=== PATIENT | female | born 1955 | race Caucasian/White ===

== ENCOUNTER 2019-03-30 09:33 | Inpatient (IN) | payer MEDICAID ==
[2019-03-30] MEDS ORDERED: NS 0.9% 1000 ML** 1,000 ML IV ONE (13:10)
[2019-03-30 13:20] LABS: ABS Eosinophils 0.2 10^3/ul (0-0.6); ABS Lymphocytes 2.2 10^3/ul (1.0-4.8); ABS Monocytes 0.7 10^3/ul (0-0.8); ABS Neutrophils 4.2 10^3/ul (1.5-7.7); Eosinophil % 2.8 %; Hematocrit 41 % (35-47); Hemoglobin 13.9 g/dL (12.0-16.0); Lymphocyte % 29.4 %; Mean Corpuscular HGB Conc 34 g/dL (31-36); Mean Corpuscular Hemoglobin 29 pg (27-31); Mean Corpuscular Volume 86 fL (80-97); Mean Platelet Volume 7.2 fL (7.4-10.4); Nucleated Red Blood Cells % 0.1; Platelet Count 363 10^3/uL (150-450); Red Blood Count 4.78 10^6 /uL (3.70-4.87); Red Cell Distribution Width 14 % (10-15); White Blood Count 7.4 10^3/uL (3.5-10.8)
[2019-03-30 13:37] LABS: Albumin 3.7 g/dL (3.2-5.2); Albumin/Globulin Ratio 1.2 (1-3); BUN/Creatinine Ratio 28.7 (8-20); C Reactive Protein 66.69 mg/L (<8.01); Calcium 8.4 mg/dL (8.6-10.3); EGFR African American 79.6 (>60); EGFR Non-African American 65.8 (>60); Potassium 3.7 mmol/L (3.5-5.0); Total Bilirubin 0.8 mg/dL (0.2-1.0); Total Protein 6.7 g/dL (6.4-8.9)
[2019-03-30] MEDS ORDERED: Iohexol 300* (CONTRAST) 10 ML SDV IV ONE (15:19)
--- NOTE | 2019-03-30 15:27 | ED ---
Abdominal Pain/Female - HPI Summary HPI Summary: Pt is a 63 y/o F presenting to the ED for a chief complaint of abdominal pain. Pt is arriving from [facility]. Pt lives in [place]. Pt was traveling to visit her daughter who lives in [place], [place] before this episode. The pain began with a burning sensation on 03/29/19 and started in the lower abdomen and moved to upper abdomen. Pt reported abdominal pain while driving to [place], [place]. Pt called 911 in [place], [place]. Pt was given antiemetics IV, antibiotics and fluids at that time at [facility]. Pt has improved since then. Pt had CT and bloodwork completed at that time. Pt describes the pain initially as comes and goes, and was later a constant pain. The pain was relieved with medicine given to her at her previous ED visit. Pt had nausea and vomiting on arrival to [facility]. Pt has only had water since previously being seen. Pt reports fatigue, lower back pain , and occasional diarrhea. Pt denies any fever, chills, erythema of eyes, sore throat, CP, SOB, cough, blood in stool, dysuria, hematuria, urinary frequency, edema, rash, or dizziness. Pt has a PSHx of a fistula repair and bowel resection. 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 Pt denies a PMHx of HTN, DM, or hypercholesterolemia, but admits a PMHx of Crohns disease for which she does not take medication. Pt does not have a PCP or GI physician in [place]. Pt takes aspirin. Pt denies alcohol use but admits tobacco use. - History of Current Complaint Chief Complaint: EDAbdPain Stated Complaint: ABD PAIN PER PT Time Seen by Provider: 03/30/19 12:51 Hx Obtained From: Patient Onset/Duration: Sudden Onset, Lasting Hours, Still Present Severity Initially: Mild Severity Currently: Mild Pain Intensity: 2 Pain Scale Used: 0-10 Numeric Location: Diffuse - Lower migrated to upper Radiates: Yes Radiates to: Back Character: Burning Aggravating Factor(s): Nothing Alleviating Factor(s): Nothing Associated Signs and Symptoms: Positive: Back Pain, Nausea, Vomiting, Diarrhea. Negative: Fever, Cough, Chest Pain, Dizzy, Constipation, Blood in Stool, Urinary Symptoms Allergies/Adverse Reactions: Allergies Allergy/AdvReac Type Severity Reaction Status Date / Time codeine Allergy See Comment Verified 03/30/19 09:47 promethazine [From Phenergan] Allergy See Comment Verified 03/30/19 18:29 PMH/Surg Hx/FS Hx/Imm Hx Previously Healthy: Yes Endocrine/Hematology History: Denies: Hx Diabetes Cardiovascular History: Denies: Hx Hypercholesterolemia, Hx Hypertension GI History: Reports: Hx Crohn's Disease Sensory History: Denies: Hx Legally Blind Opthamlomology History: Denies: Hx Legally Blind EENT History: Denies: Hx Deafness - Surgical History Surgical History: Yes Surgery Procedure, Year, and Place: Fistula repair; bowel resection. - Immunization History Immunizations Up to Date: Yes Infectious Disease History: No Infectious Disease History: Denies: Traveled Outside the [place] in Last 30 Days - Family History Known Family History: Negative: Diabetes - Social History Alcohol Use: None Substance Use Type: Reports: None Smoking Status (MU): Current Every Day Smoker Review of Systems Positive: Fatigue. Negative: Fever, Chills Negative: Erythema Negative: Sore Throat Negative: Chest Pain Negative: Shortness Of Breath, Cough Positive: Abdominal Pain, Vomiting, Diarrhea - Occasional, Nausea, Other - Negative blood in stool Negative: dysuria, frequency - Urinary, hematuria Positive: Myalgia - Lower back. Negative: Edema Negative: Rash Neurological: Other - Negative dizziness All Other Systems Reviewed And Are Negative: Yes Physical Exam - Summary Physical Exam Summary: Constitutional: Well-developed, Well-nourished, Alert. (-) Distressed Skin: Warm, Dry HENT: Normocephalic; Atraumatic Eyes: Conjunctiva normal Neck: Musculoskeletal ROM normal neck. (-) JVD, (-) Stridor, (-) Tracheal deviation Cardio: Rhythm regular, rate normal, Heart sounds normal; Intact distal pulses; The pedal pulses are 2+ and symmetric. Radial pulses are 2+ and symmetric. (-) Murmur Pulmonary/Chest wall: Effort normal. (-) Respiratory distress, (-) Wheezes, (-) Rales Abd: Soft, (-) Distension, (-) Guarding, (-) Rebound, RLQ tenderness. Musculoskeletal: (-) Edema Lymph: (-) Cervical adenopathy Neuro: Alert, Oriented x3 Psych: Mood and affect Normal Triage Information Reviewed: Yes Vital Signs On Initial Exam: Initial Vitals Temp Pulse Resp BP Pulse Ox 97.9 F 101 16 112/68 97 03/30/19 09:42 03/30/19 09:42 03/30/19 09:42 03/30/19 09:42 03/30/19 09:42 Vital Signs Reviewed: Yes Procedures - Sedation Patient Received Moderate/Deep Sedation with Procedure: No Diagnostics - Vital Signs Vital Signs Temp Pulse Resp BP Pulse Ox 03/30/19 14:28 95 114/62 95 03/30/19 14:00 99 93 03/30/19 13:58 99 115/57 93 03/30/19 13:28 95 111/59 92 03/30/19 13:23 100 92 03/30/19 11:23 99.2 F 100 20 160/90 95 03/30/19 09:42 97.9 F 101 16 112/68 97 - Laboratory Lab Results: Lab Results 03/30/19 03/30/19 03/30/19 Range/Units 13:14 13:14 13:14 WBC 7.4 (3.5-10.8) 10^3/uL RBC 4.78 (3.70-4.87) 10^6 /uL Hgb 13.9 (12.0-16.0) g/dL Hct 41 (35-47) % MCV 86 (80-97) fL MCH 29 (27-31) pg MCHC 34 (31-36) g/dL RDW 14 (10-15) % Plt Count 363 (150-450) 10^3/uL MPV 7.2 L (7.4-10.4) fL Neut % (Auto) 57.5 % Lymph % (Auto) 29.4 % [place] % (Auto) 9.7 % Eos % (Auto) 2.8 % Baso % (Auto) 0.6 % Absolute Neuts (auto) 4.2 (1.5-7.7) 10^3/ul Absolute Lymphs (auto) 2.2 (1.0-4.8) 10^3/ul Absolute Monos (auto) 0.7 (0-0.8) 10^3/ul Absolute Eos (auto) 0.2 (0-0.6) 10^3/ul Absolute Basos (auto) 0.0 (0-0.2) 10^3/ul Absolute Nucleated RBC 0.0 10^3/ul Nucleated RBC % 0.1 Sodium 135 (135-145) mmol/L Potassium 3.7 (3.5-5.0) mmol/L Chloride 103 (101-111) mmol/L Carbon Dioxide 25 (22-32) mmol/L Anion Gap 7 (2-11) mmol/L BUN 25 H (6-24) mg/dL Creatinine 0.87 (0.51-0.95) mg/dL Est GFR ( Amer) 79.6 (>60) Est GFR (Non-Af Amer) 65.8 (>60) BUN/Creatinine Ratio 28.7 H (8-20) Glucose 102 H (70-100) mg/dL Lactic Acid 1.0 (0.5-2.0) mmol/L Calcium 8.4 L (8.6-10.3) mg/dL Total Bilirubin 0.80 (0.2-1.0) mg/dL AST 18 (13-39) U/L ALT 15 (7-52) U/L Alkaline Phosphatase 95 (34-104) U/L C-Reactive Protein 66.69 H (<8.01) mg/L Total Protein 6.7 (6.4-8.9) g/dL Albumin 3.7 (3.2-5.2) g/dL Globulin 3.0 (2-4) g/dL Albumin/Globulin Ratio 1.2 (1-3) Lipase 45 (11.0-82.0) U/L Result Diagrams: 04/02/19 07:00 04/02/19 07:00 Lab Statement: Any lab studies that have been ordered have been reviewed, and results considered in the medical decision making process. - CT Abdomen/Pelvis CT CT Interpretation Completed By: Radiologist Summary of CT Findings: Abdomen/Pelvis CT IMPRESSION: 1. DILATED LOOPS OF SMALL BOWEL CONSISTENT WITH SMALL BOWEL OBSTRUCTION. THERE IS NO. FOCAL TRANSITION POINT, THOUGH THERE IS DECREASED LUMEN OF THE SMALL BOWEL MUCOSAL. THICKENING AT THE LEVEL OF THE TERMINAL ILEUM EXTENDING TO THE CECUM CONSISTENT WITH A. HISTORY OF INFLAMMATORY BOWEL DISEASE. THERE IS POSTSURGICAL CHANGE TO THE SMALL BOWEL AND. COLON. 2. ATHEROSCLEROSIS. Reviewed by ED physician. Abdominal Pain Fem Course/Dx - Course Course Of Treatment: Pt is a 63 y/o F presenting to the ED for a chief complaint of abdominal pain. Pt is arriving from [facility]. Pt lives in [place]. Pt was traveling to visit her daughter who lives in [place], [place] before this episode. The pain began with a burning sensation on 03/29/19 and started in the lower abdomen and moved to upper abdomen. Pt reported abdominal pain while driving to [place], [place]. Pt called 911 in [place], [place]. Pt was given antiemetics IV, antibiotics and fluids at that time at [facility]. Pt has improved since then. Pt had CT and bloodwork completed at that time. Pt describes the pain initially as comes and goes, and was later a constant pain. The pain was relieved with medicine given to her at her previous ED visit. Pt had nausea and vomiting on arrival to [facility]. Pt has only had water since previously being seen. Pt reports fatigue, lower back pain, and occasional diarrhea. Pt denies any fever, chills, erythema of eyes, sore throat, CP, SOB, cough, blood in stool, dysuria, hematuria, urinary frequency, edema, rash, or dizziness. Pt has a PSHx of a fistula repair and bowel resection. 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 Pt denies a PMHx of HTN, DM, or hypercholesterolemia, but admits a PMHx of Crohns disease for which she does not take medication. Pt does not have a PCP or GI physician in [place]. Pt takes aspirin. Pt denies alcohol use but admits tobacco use. On exam, pt has RLQ tenderness. Laboratory abnormal findings: MPV 7.2, BUN 25, BUN/creatinine ratio 28.7, glucose 102, calcium 102, c-reactive protein 66.69, urine specific gravity 1.035 , urine ketones trace, urine leukocyte esterase 2+, urine WBC 2+, urine RBC 3+, urine squamous epith cells present, hyaline casts present. Abdomen/Pelvis CT IMPRESSION: 1. DILATED LOOPS OF SMALL BOWEL CONSISTENT WITH SMALL BOWEL OBSTRUCTION. THERE IS NO. FOCAL TRANSITION POINT, THOUGH THERE IS DECREASED LUMEN OF THE SMALL BOWEL MUCOSAL. THICKENING AT THE LEVEL OF THE TERMINAL ILEUM EXTENDING TO THE CECUM CONSISTENT WITH A. HISTORY OF INFLAMMATORY BOWEL DISEASE. THERE IS POSTSURGICAL CHANGE TO THE SMALL BOWEL AND. COLON. 2. ATHEROSCLEROSIS. In the ED course, pt was given Iohexol 93 ml IV, morphine 2 mg IV, and fluids. Pt will be admitted to [facility]. - Diagnoses Provider Diagnoses: SBO (small bowel obstruction) Discharge ED - Sign-Out/Discharge Documenting (check all that apply): Patient Departure - Admit - Discharge Plan Condition: Good Disposition: ADMITTED TO [facility] - Billing Disposition and Condition Condition: GOOD Disposition: Admitted to [facility] - Attestation Statements Document Initiated by Scribe: Yes Documenting Scribe: Isaura Lindsay Provider For Whom Scribe is Documenting (Include Credential): Ilan Puga MD. Scribe Attestation: Isaura Montague, scribed for Ilan Puga MD. on 04/17/19 at 1046. Scribe Documentation Reviewed: Yes Provider Attestation: The documentation as recorded by the scribeIsaura accurately reflects the service I personally performed and the decisions made by , Ilan Puga MD. Status of Scribe Document: Viewed
[2019-03-30 16:22] LABS: Urine Appearance Clear; Urine Bacteria Absent (Absent); Urine Bilirubin Negative (Negative); Urine Blood Negative (Negative); Urine Color Amber; Urine Glucose Negative (Negative); Urine Ketones Trace (Negative); Urine Nitrite Negative (Negative); Urine Protein Negative (Negative); Urine Red Blood Cell 3+(>10/hpf) (Absent); Urine Specific Gravity 1.035 (1.010-1.030); Urine Squamous Epithelial Cell Present (Absent); Urine Urobilinogen Negative (Negative); Urine White Blood Cell 2+(11-20/hpf) (Absent)
[2019-03-30] MEDS ORDERED: Ondansetron INJ* 2 MG/ML VIAL IV PRN (18:13)
[2019-03-30] MEDS ORDERED: Morphine 4 MG/ML VIAL (1 ml) 4 MG/ML VIAL IV PRN (18:27)
[2019-03-30] MEDS: Enoxaparin(*) 40 MG/0.4 ML SYR SUBCUT SCH (20:55)
[2019-03-30] MEDS: NS 0.9% 1000 ML** 1,000 ML IV SCH (21:00)
--- NOTE | 2019-03-30 21:19 | HP ---
CC: Bea Villatoro MD * ADMISSION HISTORY AND PHYSICAL: DATE OF ADMISSION: 03/30/19 PRIMARY CARE PROVIDER: None. ATTENDING FOR THIS ADMISSION: Dr. Ruth Sanchez.* (DICTATED BY DAISY POST NP) CHIEF COMPLAINT: Abdominal pain and nausea. HISTORY OF PRESENT ILLNESS: Ms. Smith is a 63-year-old female patient with a history of Crohn's disease and bowel resection in 1999 and 2005. Ms. Smith states that she has not sought any medical attention since having her last resection in 2005. She does usually reside in [place], [place]; however, she has a daughter here in [place] that she frequently comes to visit. In last 24 hours, she reports that she started having abdominal pain and a burning sensation which progressed since yesterday and then she started having increasing nausea. She does liken her symptoms to her issue with a small bowel obstruction secondary to Crohn's disease in 2005, and at that time her family brought her to the emergency department for evaluation. In the ED, she was given IV fluids and had some imaging done. CT of her abdomen and pelvis did show some acute changes. Impression of the CT showed dilated loops of small bowel consistent with a small bowel obstruction. There was no focal transition point, although there is a decreased movement of the small bowel. Mucosal thickening at the level of the terminal ileum extending into the cecum consistent with a history of inflammatory bowel disease. There was a postsurgical change to the small bowel and the colon and there was also some noted atherosclerosis. At this time, we were consulted to evaluate the patient for admission for small bowel obstruction and untreated Crohn's disease. PAST MEDICAL HISTORY: Per the patient's report is Crohn's disease, although she has not seen the doctor since 2005 and does not have a primary care. HOME MEDICATIONS: None. ALLERGIES: PHENERGAN and CODEINE. FAMILY HISTORY: Noncontributory. SOCIAL HISTORY: The patient is an active everyday smoker, half pack per day for many years. Denies any alcohol. Denies any illicit drug use. Again, is from the out of town and is visiting the daughter. In case of emergency, she requests us to call her daughter, Mona Nye. She does not have Mona 's phone number with her. CODE STATUS: She is a full code. REVIEW OF SYSTEMS: The patient denies any fever, fatigue, or chills. No dizziness. No chest pain. No shortness of breath. She does have abdominal pain described as diffuse and also a burning sensation. She does endorse some nausea which is intermittent in nature but denies any vomiting. She denies any urinary complaints. No arthralgias or myalgias and no further constitutional complaints. PHYSICAL EXAMINATION GENERAL: Reveals a well-nourished female in a mild amount of distress. VITAL SIGNS: Blood pressure of 120/63, heart rate 102, respiratory rate 18, O2 saturation 92% on room air with a temperature of 99.2. HEENT: The patient is atraumatic, normocephalic. PERRLA, nonicteric sclerae. Oral mucosa is somewhat dry. Tongue is midline. Dentition is poor. NECK: Supple, nontender. No JVD noted. No thyromegaly appreciated. No carotid bruits auscultated. LUNGS: Clear bilaterally to auscultation with no wheezing, rhonchi, or rales appreciated. CARDIOVASCULAR: S1, S2 present. No murmurs, gallops or rubs noted. Rate and rhythm are regular. ABDOMEN: Diffusely tender across all quadrants. She does have hypoactive bowel sounds noted in the right lower and left lower quadrant. There was no hepatomegaly noted and no splenomegaly appreciated. : Deferred. MUSCULOSKELETAL: There is no clubbing, no cyanosis, no pedal edema. She has + 2 distal pulses palpable. Full range of motion. Gross motor and sensation are intact. NEUROLOGIC: She is somewhat sleepy, but otherwise grossly intact with no focal deficits. PSYCHIATRIC: Calm, cooperative, appropriate, alert and oriented x3. DIAGNOSTIC STUDIES/LAB DATA: WBCs 7.4, RBCs 4.78, hemoglobin 13.9, hematocrit 41, platelets 363,000. Sodium 135, potassium 3.7, chloride 103, CO2 of 25. BUN 25, creatinine 0.87. GFR 65.8. BUN creatinine ratio 28.7. Glucose 102. Lactic acid was 1.0 and 0.6. Calcium 8.4. Total bilirubin 0.80. AST 18, ALT 15, alk phos 95. CRP 66.69. Total protein 6.7, albumin 3.7, globulin 3.0. Albumin globulin ratio 1.2. Lipase 45. Urinalysis; specific gravity is 1.035, ketones trace, leukocyte esterase 2+, wbc's 2+, rbc's 3+, squamous epithelial cells present, urine bacteria is absent, hyaline cast present. Negative for blood, nitrites or bilirubin. Imaging: CT of the abdomen and pelvis as noted in the body of this document above. IMPRESSION: Ms. Smith is a 63-year-old female with no reported medical history other than untreated Crohn's who presents in the emergency department today with abdominal pain and nausea, found to have small bowel obstruction secondary to inflammatory bowel disease. PLAN: The patient has been admitted to inpatient. DIAGNOSES: 1. Small bowel obstruction. I did have a discussion with Dr. Townsend of Gastroenterology service. We will have Gastroenterology see the patient in the morning for her Crohn's disease. In the meantime, she is not in an acute flare and she did not require steroids at this time. The patient does not endorse any bleeding or any diarrhea; however, with the obstruction that she has, she probably does have some strictures from her inflammatory process and probably from previous surgeries. We will keep her n.p.o. She is not currently actively vomiting, so I do not think she needs a nasogastric tube at this time. We will keep her on antiemetics and start her on IV fluids at 125 ml/h. She has already received fluid bolus in the emergency department. She is not looking septic or toxic at this time. There is no fever, no white count. I do not feel she needs antibiotics at present. We will give her morphine for pain control and we will await Gastroenterology's evaluation and look forward to any recommendations from Gastroenterology in terms of continued plan of care. 2. Mild tachycardia. This is in presence of acute bowel obstruction. I expect that with fluids and resolution of her obstruction and pain control that her heart rate will come down. We will continue to monitor her vital signs closely. 3. History of tobacco use. The patient states she is trying to quit. She does not wish to have nicotine patch at this time. 4. For DVT prophylaxis, the patient will be placed on Lovenox 40 subcu daily. 5. Diet n.p.o. 6. Activity. Ambulate as tolerated. The rest of the patient's course will be determined by further diagnostics, laboratories, and then the other inputs from other providers as warranted during this admission. TIME SPENT: Sixty minutes on admission planning, 50% of the time was spent face -to- face with the patient developing admission plan of care. DAISY POST, ELAN [id number]/[facility] #: [id number] DRISS
[2019-03-31] MEDS: Morphine INJ* 4 MG/ML 1 ML SYRINGE (NEW SYRINGE VERSION) IV PRN ×2 (01:17→08:05)
[2019-03-31 06:39] LABS: ABS Eosinophils 0.2 10^3/ul (0-0.6); ABS Lymphocytes 3.4 10^3/ul (1.0-4.8); ABS Neutrophils 3.9 10^3/ul (1.5-7.7); Hematocrit 39 % (35-47); Hemoglobin 12.8 g/dL (12.0-16.0); Lymphocyte % 39.9 %; Mean Corpuscular HGB Conc 33 g/dL (31-36); Mean Corpuscular Hemoglobin 29 pg (27-31); Mean Corpuscular Volume 86 fL (80-97); Mean Platelet Volume 7.8 fL (7.4-10.4); Platelet Count 344 10^3/uL (150-450); Red Blood Count 4.49 10^6 /uL (3.70-4.87); Red Cell Distribution Width 14 % (10-15); White Blood Count 8.4 10^3/uL (3.5-10.8)
[2019-03-31 07:02] LABS: Albumin 3.2 g/dL (3.2-5.2); Albumin/Globulin Ratio 1.3 (1-3); BUN/Creatinine Ratio 26.2 (8-20); Calcium 7.7 mg/dL (8.6-10.3); EGFR African American 111.4 (>60); EGFR Non-African American 92.1 (>60); Globulin 2.5 g/dL (2-4); Potassium 3.5 mmol/L (3.5-5.0); Total Protein 5.7 g/dL (6.4-8.9)
[2019-03-31] MEDS: NS 0.9% 1000 ML** 1,000 ML IV SCH ×2 (08:16→21:53)
[2019-03-31 10:50] LABS: Magnesium 1.5 mg/dL (1.9-2.7)
[2019-03-31 10:53] LABS: Troponin I 0.01 ng/mL (<0.04)
[2019-03-31] MEDS ORDERED: Magnesium Sulfate IV* 3 GM in NS 0.9% 100 ML* 100 ML IVPB ONE (12:00)
[2019-03-31 12:09] LABS: C Reactive Protein 116.03 mg/L (<8.01)
--- NOTE | 2019-03-31 16:52 | PN ---
Subjective Date of Service: 03/31/19 Interval History: Patient is lethargic today. Patient in the AM had only mild abdominal pain. Patient was passing gas and had a small BM, but her abdominal pain worsened again in the PM. Patient is not hungry. Patient denies hematochezia. Patient denies F/C, dizziness, CP, SOB. Family History: Unchanged from Admission Social History: Unchanged from Admission Past Medical History: Unchanged from Admission Objective Active Medications: Budesonide (Budesonide Cap(Nf)) 9 mg PO DAILY [facility]; Protocol Enoxaparin Sodium (Lovenox(*)) 40 mg SUBCUT Q24H [facility] Last Admin: 03/30/19 20:55 Dose: 40 mg Sodium Chloride (Ns 0.9% 1000 Ml) 1,000 mls @ 100 mls/hr IV PER RATE [facility] Last Admin: 03/31/19 08:16 Dose: 100 mls/hr Morphine Sulfate (Morphine Inj (Syringe)*) 2 mg IV Q4H PRN PRN Reason: PAIN - MODERATE Last Admin: 03/31/19 08:05 Dose: 2 mg Ondansetron HCl (Zofran Inj*) 4 mg IV Q4H PRN PRN Reason: NAUSEA/VOMITING Vital Signs - 8 hr 03/31/19 03/31/19 03/31/19 09:05 11:15 15:15 Temperature 97.5 F 98.1 F Pulse Rate 51 99 Respiratory 18 22 22 Rate Blood Pressure 106/37 130/50 (mmHg) O2 Sat by Pulse 96 96 Oximetry Oxygen Devices in Use Now: None Appearance: Patient is a 63yo female who appears stated age and is sitting in the bed in [facility]. Eyes: No Scleral Icterus, PERRLA Ears/Nose/Mouth/Throat: NL Teeth, Lips, Gums, Clear Oropharnyx, Mucous Membranes Moist Neck: NL Appearance and Movements; NL JVP, Trachea Midline Respiratory: Symmetrical Chest Expansion and Respiratory Effort, Clear to Auscultation Cardiovascular: NL Sounds; No Murmurs; No JVD, RRR, No Edema Abdominal: NL Sounds; No Tenderness; No Distention, - - High Pitched hyperactive bowel sounds. Tender to palpation in the RLQ Lymphatic: No Cervical Adenopathy Extremities: No Edema, No Clubbing, Cyanosis Skin: No Rash or Ulcers, No Nodules or Sclerosis Neurological: Alert and Oriented x 3, NL Sensation, NL Muscle Strength and Tone , - - CN II-XII intact. Result Diagrams: 03/31/19 05:48 03/31/19 05:48 Additional Lab and Data: Lab Results Microbiology and Other Data: Microbiology 03/30/19 15:45 Urine Culture - Final Urine No Growth (<1,000 CFU/mL) Assess/Plan/Problems-Billing Assessment: Patient is a 63yo female with a PMH for Crohn's, and multiple SBOs, here with SBO and possible Crohn's flare. - Patient Problems (1) SBO (small bowel obstruction) Current Visit: Yes Status: Acute Code(s): K56.609 - UNSP INTESTNL OBST, UNSP TO PARTIAL VERSUS COMPLETE OBST SNOMED Code(s): 109951772 Comment: - Likely due to Crohn's or adhesions from previous bowel surgery - NPO, Fluids, Persistent obstruction on Abdominal XR - Advance diet slowly, no need for NG tube at this time (2) Crohn disease Current Visit: Yes Status: Acute Code(s): K50.90 - CROHN'S DISEASE, UNSPECIFIED, WITHOUT COMPLICATIONS SNOMED Code(s): 20245816 Comment: - Terminal ileitus on CT scan - ? Crohn's flare, Start Budesonide per GI - Appreciate input - CRP Trending up - Might need Biologic outpatient (3) PAC (premature atrial contraction) Current Visit: Yes Status: Acute Code(s): I49.1 - ATRIAL PREMATURE DEPOLARIZATION SNOMED Code(s): 052056394 Comment: - Multiple PACs - History palpitations - Optimize electrolytes (4) DVT prophylaxis Current Visit: Yes Status: Acute Code(s): Z29.9 - ENCOUNTER FOR PROPHYLACTIC MEASURES, UNSPECIFIED SNOMED Code(s): 069585876 Comment: - Lovenox (5) Full code status Current Visit: Yes Status: Acute Code(s): Z78.9 - OTHER SPECIFIED HEALTH STATUS SNOMED Code(s): 695711745 Status and Disposition: Inpatient for SBO
[2019-03-31] MEDS ORDERED: CMCS:Budesonide CAP(NF) 3 MG PO SCH (17:00)
[2019-03-31] MEDS: methylPREDNISolone 125 MG* 2 ML VIAL IV SCH (18:06)
--- NOTE | 2019-03-31 21:21 | CONS ---
CC: KJ Gallegos * GASTROENTEROLOGY CONSULT REPORT: DATE OF CONSULT: 03/31/19 REASON FOR CONSULT: Crohn's related SBO. REQUESTING PROVIDER: KJ Gallegos HISTORY OF PRESENT ILLNESS: Ms. Smith is a 63-year-old woman with a history of Crohn's disease complicated by small bowel resections x 2, who is admitted with an SBO. History largely obtained from the patient's daughter as the patient is very sleepy on exam. The patient lives in [place], [place]. Her daughter lives in the [place] area. The patient is currently staying with her daughter with plan to reside here for a longer period of time. The patient's Crohn's was diagnosed in 1999. 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 She had 2 small bowel resections in 1999 and 2005. She has never been on Crohn's related therapy. She denies any chronic symptoms. She was driving to [place] with her daughter when she started to have abdominal pain. Her daughter brought her into the ED as her symptoms were concerning for recurring Crohn's. In the ED, she had labs demonstrating an elevated CRP to 66.69. A CT of abdomen and pelvis demonstrated dilated loops of small bowel consistent with small bowel obstruction without focal transition point. There is decreased lumen of the small bowel with thickening at the level of the terminal ileum extending to the cecum consistent with Crohn's. The patient was admitted and given IV fluids. She was noted to have had a small bowel movement this morning. She has been sleeping most of the afternoon. When I entered the room this afternoon, the patient was sleeping on her side. There was a stain on the bottom of her pants and the bed consistent with episode of fecal incontinence. She denies any significant abdominal discomfort. PAST MEDICAL HISTORY: 1. Crohn's disease requiring small bowel resection x2. Complete historical details unavailable as her care has been elsewhere. HOME MEDICATIONS: None. ALLERGIES: PHENERGAN and CODEINE. FAMILY HISTORY: Daughter has history of Crohn's disease. SOCIAL HISTORY: The patient lives in [place], although she is currently staying with her daughter in [place]. She smokes every day. Denies any alcohol or drug use. REVIEW OF SYSTEMS: The patient denies complete review of systems except as positive in the HPI. PHYSICAL EXAM: Vital Signs: Afebrile, heart rate in the 50s, blood pressure 106/37, 96% on room air. General: Lethargic-appearing woman. No acute distress. HEENT: Poor dentition. Mildly dry mucous membranes. Cardiovascular: Regular rate and rhythm. Pulmonary: Breathing comfortably. Abdomen: Positive bowel sounds. Soft and nondistended. There is tenderness particularly in the lower abdomen with mild palpation. Extremities: No significant edema. Neurologic: Unable to fully assess as the patient is sleepy. DIAGNOSTIC STUDIES/LAB DATA: Labs are reviewed. White count normal. Hemoglobin 12.8 with a hematocrit of 39. Platelet count 344. CRP was 66.7 on admission. CRP now 116. Albumin 3.2 after IV fluids. Imaging: CT abdomen and pelvis yesterday demonstrated dilated loops of small bowel with fusiform narrowing and mucosal thickening of the distal small bowel extending into the terminal ileum consistent with Crohn's disease. No focal transition point. Abdominal x-ray obtained this morning demonstrates persistently dilated loops of small bowel. Oral contrast was noted in the colon suggestive of partial or intermittent obstruction. IMPRESSION AND RECOMMENDATIONS: Ms. Smith is a 63-year-old woman with history of untreated Crohn's disease status-post small bowel resection x2, who presents with recurrent partial small bowel obstruction likely attributable to Crohn's disease. Patient has evidence of return of bowel function (bowel movements, bowel sounds on exam) suggestive of resolving pSBO. She remains quite tender in her lower abdomen. Reviewed with the patient and her daughter that I think placing her on IV steroids at this point is reasonable. I hope that the IV steroids will help manage what I suspect is active Crohn's disease. It is difficult to determine if there is any underlying chronic fibrostenotic disease in the TI, although the elevated CRP supports at least a portion of acute inflammation. She will need to have a long-term maintenance plan for her Crohn's disease. Would favor a biologic such as Humira or Remicade. The patient currently does not have insurance, but her daughter says that they are working on obtaining this within the next few weeks. She is going to be staying with her daughter locally, so we will plan to establish care with her in clinic following this admission. 1. Continue to monitor CBC, comp, and CRP daily. 2. Continue NPO and IV fluids. 3. Minimize IV narcotics as able. The patient is quite lethargic today. Additionally, narcotics can limit our ability to adequately assess any acute clinical change. 4. Recommend starting Solu-Medrol IV 30 mg twice daily. Thank you very much for this consult. GI will continue to follow along. [id number]/CPS #: [id number] [facility] CENTERLola
[2019-03-31] MEDS: Enoxaparin(*) 40 MG/0.4 ML SYR SUBCUT SCH (21:53)
[2019-04-01] MEDS: methylPREDNISolone 125 MG* 2 ML VIAL IV SCH ×2 (06:40→17:39)
[2019-04-01 07:06] LABS: Calcium 7.8 mg/dL (8.6-10.3)
[2019-04-01 07:12] LABS: BUN/Creatinine Ratio 17.2 (8-20)
[2019-04-01 07:42] LABS: ABS Lymphocytes 1.4 10^3/ul (1.0-4.8); ABS Monocytes 0.3 10^3/ul (0-0.8); ABS Neutrophils 5.2 10^3/ul (1.5-7.7); Hematocrit 39 % (35-47); Hemoglobin 12.9 g/dL (12.0-16.0); Mean Corpuscular HGB Conc 33 g/dL (31-36); Mean Corpuscular Hemoglobin 29 pg (27-31); Mean Corpuscular Volume 86 fL (80-97); Mean Platelet Volume 7.5 fL (7.4-10.4); Platelet Count 363 10^3/uL (150-450); Red Blood Count 4.49 10^6 /uL (3.70-4.87); Red Cell Distribution Width 14 % (10-15)
[2019-04-01 07:49] LABS: Potassium 4.4 mmol/L (3.5-5.0)
[2019-04-01 08:27] LABS: BUN/Creatinine Ratio 17.5 (8-20); Calcium 8.2 mg/dL (8.6-10.3); EGFR African American 129.6 (>60); EGFR Non-African American 107.1 (>60); Potassium 4.2 mmol/L (3.5-5.0)
[2019-04-01 13:20] LABS: BUN/Creatinine Ratio 19.6 (8-20); Calcium 8.3 mg/dL (8.6-10.3); EGFR African American 132.3 (>60); EGFR Non-African American 109.3 (>60); Potassium 3.9 mmol/L (3.5-5.0)
--- NOTE | 2019-04-01 14:06 | PN ---
Subjective Date of Service: 04/01/19 Interval History: Patient is feeling well this AM. Patient has minimal pain this AM in abdomen. Patient had only a small amount of BM overnight and yesterday evening. Patient denied dizziness, drowsiness, CP, SOB or other pain. Family History: Unchanged from Admission Social History: Unchanged from Admission Past Medical History: Unchanged from Admission Objective Active Medications: Enoxaparin Sodium (Lovenox(*)) 40 mg SUBCUT Q24H [facility] Last Admin: 03/31/19 21:53 Dose: 40 mg Methylprednisolone Sodium Succinate (Solu-Medrol 125mg *) 30 mg IV Q12H [facility] Last Admin: 04/01/19 06:40 Dose: 30 mg Morphine Sulfate (Morphine Inj (Syringe)*) 2 mg IV Q4H PRN PRN Reason: PAIN - MODERATE Last Admin: 03/31/19 08:05 Dose: 2 mg Ondansetron HCl (Zofran Inj*) 4 mg IV Q4H PRN PRN Reason: NAUSEA/VOMITING Vital Signs - 8 hr 04/01/19 04/01/19 04/01/19 07:33 08:00 11:39 Temperature 98.3 F 98.2 F Pulse Rate 88 80 Respiratory 16 16 16 Rate Blood Pressure 129/56 126/62 (mmHg) O2 Sat by Pulse 97 96 Oximetry Oxygen Devices in Use Now: None Appearance: Patient is a 63yo female who appears stated age and is sitting in the bed in [facility]. Eyes: No Scleral Icterus, PERRLA Ears/Nose/Mouth/Throat: NL Teeth, Lips, Gums, Clear Oropharnyx, Mucous Membranes Moist Neck: NL Appearance and Movements; NL JVP, Trachea Midline Respiratory: Symmetrical Chest Expansion and Respiratory Effort, Clear to Auscultation Cardiovascular: NL Sounds; No Murmurs; No JVD, RRR, No Edema Abdominal: No Hepatosplenomegaly, - - Slight RLQ tenderness. No rebound or guarding. Normoactive bowel sounds. Lymphatic: No Cervical Adenopathy Extremities: No Edema, No Clubbing, Cyanosis Skin: No Rash or Ulcers, No Nodules or Sclerosis Neurological: Alert and Oriented x 3, NL Sensation, NL Muscle Strength and Tone , - - CN II-XII intact. Result Diagrams: 04/01/19 07:28 04/01/19 13:00 Additional Lab and Data: Lab Results Microbiology and Other Data: Microbiology 03/30/19 15:45 Urine Culture - Final Urine No Growth (<1,000 CFU/mL) Assess/Plan/Problems-Billing Assessment: Patient is a 63yo female with a PMH for Crohn's, and multiple SBOs, here with SBO and possible Crohn's flare. - Patient Problems (1) SBO (small bowel obstruction) Current Visit: Yes Status: Acute Code(s): K56.609 - UNSP INTESTNL OBST, UNSP TO PARTIAL VERSUS COMPLETE OBST SNOMED Code(s): 708170440 Comment: - Likely due to Crohn's or adhesions from previous bowel surgery - Tolerating Clears, advance to full liquids - Passing Flatus and BMs (2) Crohn disease Current Visit: Yes Status: Acute Code(s): K50.90 - CROHN'S DISEASE, UNSPECIFIED, WITHOUT COMPLICATIONS SNOMED Code(s): 22653813 Comment: - Terminal ileitus on CT scan - ? Crohn's flare, Start solu-medrol per GI, continue until tomorrow - Appreciate input - CRP Trending up, recheck in AM - Might need Biologic outpatient (3) PAC (premature atrial contraction) Current Visit: Yes Status: Acute Code(s): I49.1 - ATRIAL PREMATURE DEPOLARIZATION SNOMED Code(s): 585290737 Comment: - Multiple PACs - History palpitations - Optimize electrolytes (4) DVT prophylaxis Current Visit: Yes Status: Acute Code(s): Z29.9 - ENCOUNTER FOR PROPHYLACTIC MEASURES, UNSPECIFIED SNOMED Code(s): 940534042 Comment: - Lovenox (5) Metabolic acidosis Current Visit: Yes Status: Acute Code(s): E87.2 - ACIDOSIS SNOMED Code(s) : 11838639 Comment: - Sudden onset, Unclear cause, No anion gap, Lactic normal - No signs of seizure - Possible combination of IV NS and diarrhea - Improving rapidly without intervention - Monitor (6) Full code status Current Visit: Yes Status: Acute Code(s): Z78.9 - OTHER SPECIFIED HEALTH STATUS SNOMED Code(s): 139689684 Status and Disposition: Inpatient for SBO, hopeful D/C tomorrow after transition to Oral Steroids.
[2019-04-01] MEDS: Enoxaparin(*) 40 MG/0.4 ML SYR SUBCUT SCH (20:12)
[2019-04-02] MEDS: methylPREDNISolone 125 MG* 2 ML VIAL IV SCH (07:00)
[2019-04-02 07:05] LABS: ABS Monocytes 0.7 10^3/ul (0-0.8); ABS Neutrophils 6.1 10^3/ul (1.5-7.7); Hematocrit 35 % (35-47); Hemoglobin 12.2 g/dL (12.0-16.0); Lymphocyte % 22.8 %; Mean Corpuscular HGB Conc 35 g/dL (31-36); Mean Corpuscular Hemoglobin 30 pg (27-31); Mean Corpuscular Volume 85 fL (80-97); Mean Platelet Volume 7.3 fL (7.4-10.4); Nucleated Red Blood Cells % 0.1; Platelet Count 385 10^3/uL (150-450); Red Blood Count 4.13 10^6 /uL (3.70-4.87); Red Cell Distribution Width 14 % (10-15); White Blood Count 8.9 10^3/uL (3.5-10.8)
[2019-04-02 07:24] LABS: C Reactive Protein 37.83 mg/L (<8.01); Calcium 8.4 mg/dL (8.6-10.3); Magnesium 1.7 mg/dL (1.9-2.7); Potassium 3.8 mmol/L (3.5-5.0)
[2019-04-02] MEDS ORDERED: Magnesium Sulfate IV* 3 GM in NS 0.9% 100 ML* 100 ML IVPB ONE (09:15)
[2019-04-02 11:27] VITALS: BP 135/67
[2019-04-02] MEDS ORDERED: Influenza VAC *QUAD* 2019-20* 0.5 ML SYRINGE IM ONE (12:00)
--- NOTE | 2019-04-02 12:26 | PN ---
Progress Note - Progress Note Date of Service: 04/02/19 Note: GASTROENTEROLOGY FOLLOW-UP NOTE S/IE: - Tolerated liquid diet yesterday. Has not eaten today. No nausea/vomiting. - Several small to medium loose stools yesterday and this morning. Passing flatus. - Some residual RLQ discomfort but not severe. O: VSS Comfortable appearing. NAD. Abdomen soft and non-distended. Mild tenderness in RLQ w deep palpation. Labs reviewed. CRP down to 37.83. A/P: 63yF w/ history of Crohn's dz status-post small bowel resection x 2 (1999,2005) without any maintenance therapy, who is admitted with pSBO in setting of untreated Crohn's disease. Imaging demonstrated narrowing in distal small bowel/TI c/w Crohn's disease. CRP elevated. Presentation most suggestive of active Crohn's disease, although it is difficult to determine if there is underlying fibrostenotic disease as well. Started on IV steroids. Patient's pSBO has resolved clinically. CRP improving. Can transition to Prednisone 40 mg daily (to start tmrw as patient received equivalent of this dose in IV form this morning) Can advance to low residue diet Continue to monitor CBC, CMP, CRP daily while inpatient. Will need outpatient GI follow-up within next 2 weeks to discuss treatment plan. Will likely require initiation on biologic therapy. Patient resides permanently in [place] but will be staying with her daughter for now until her health is improved. Thank you for this consult. GI will continue to follow along peripherally and arrange outpatient follow-up. Bea Villatoro MD
--- NOTE | 2019-04-02 13:09 | DS ---
CC: [facility]; Dr. Villatoro * DISCHARGE SUMMARY: DATE OF ADMISSION: 03/30/19 DATE OF DISCHARGE: 04/02/19 PRIMARY CARE PROVIDER: None. Was referred to establish with the [facility]. RICKSHAW DRIVER: Dr. Villatoro. ATTENDING PHYSICIAN: Dr. Bryon Buckner * (dictated by KJ Aldana). PRIMARY DIAGNOSES: 1. Small bowel obstruction. 2. Crohn disease with possible flare. SECONDARY DIAGNOSIS: Crohn disease, status post bowel resection in 1999, 2005. STUDIES WHILE IN THE HOSPITAL: 1. CT abdomen and pelvis, impression: Dilated loops of small bowel consistent with small bowel obstruction. There is no focal transition point though there is decreased lumen of the small bowel mucosal thickening at the level of the terminal ileum extending to the cecum consistent with a history of inflammatory bowel disease. There is postsurgical change to the small bowel and colon. Atherosclerosis. 2. Abdomen x-ray, impression: Persistent dilated loops of small bowel consistent with history of small bowel obstruction. Oral contrast is noted within the colon suggestive of partial or intermittent obstruction. CONSULTATIONS WHILE IN THE HOSPITAL: Gastroenterology consult impression and plan: Continue to monitor CBC, comp, and CRP daily. Continue IV fluids. Minimize IV narcotics as able. Continue n.p.o. Recommend starting Solu- Medrol IV 30 mg b.i.d. She will need to establish care with GI in outpatient clinic following admission. Would favor a biologic such as Humira or Remicade. DISCHARGE MEDICATIONS: Home medications: None. New home medications: Prednisone 40 mg p.o. daily, prescribed 3 weeks' worth. Changed home medications: None. HISTORY OF PRESENT ILLNESS/HOSPITAL COURSE: Ms. Smith is a 63-year-old female with the past medical history of Crohn disease status post bowel resection in 1999 and 2005, who has not sought medical attention since 2005. For full and complete details, please see the history and physical dictated by Kimberley Urena NP, but in short, the patient presented on 03/30/19, with complaints of 24 hours of abdominal pain, burning sensation progressing to nausea. CT of the abdomen and pelvis was performed and showed dilated loops of small bowel consistent with small bowel obstruction, mucosal thickening consistent with history of inflammatory bowel disease. The patient was admitted to the hospital. Gastroenterology was consulted. She was made n.p.o. and started on IV fluids. She was seen by Dr. Moris Alamo from Gastroenterology, who recommended starting Solu-Medrol 30 IV q.12 hours. She was eventually transitioned from n.p.o. to clear liquids, then full liquids. She tolerated both of these well without nausea, vomiting, or abdominal pain. Gastroenterology recommends that the patient follow up outpatient with [facility] and start medication such as Humira or Remicade in the outpatient setting to manage her Crohn disease. The patient gradually improved throughout her stay. She was noted to have an elevated CRP at admission, which had decreased upon discharge. She had no leukocytosis or fever at the time of discharge. The patient continues to have intermittent mild abdominal cramping without nausea or vomiting. She is tolerating oral intake. She notes she has been passing flatus. She had a loose bowel movement today without hematochezia or melena. She denies headache, vision changes, dizziness, lightheadedness, chest pain or discomfort, shortness of breath, cough, fever, chills, sweats, fatigue. She has intermittent cramping although reports none at this time. She denies nausea or vomiting. She denies myalgias, arthralgias, weakness in the extremities. Ms. Smith is stable for discharge to home. PHYSICAL EXAMINATION: Vital Signs: Temperature 98.6 oral, heart rate 77, respiratory rate 20, oxygen saturation 97% on room air, blood pressure 127/55. General: Ms. Smith is a well-developed, well-nourished, normal weight, middle- aged, white woman who is sitting up in bed. She appears to be in no acute distress. She is able to move comfortably. HEENT: PERRL. Nonicteric sclerae. Hearing grossly intact. Oral mucous membranes are moist. There are no lesions. The patient is missing teeth. Pharynx is clear. Cardiovascular: Regular rate and rhythm with S1, S2 present without murmurs, rubs, clicks, or gallops. There is no JVD. There is no peripheral edema. Radial and pedal pulses are palpable. Pulmonary: Symmetrical chest expansion without use of accessory muscles. Lungs are clear to auscultation bilaterally without rhonchi , wheeze, or rubs. No digital clubbing or cyanosis. Abdomen: Flat. Bowel sounds are normoactive throughout. The patient has mild right lower quadrant tenderness to palpation without guarding, rebound, or point tenderness. Musculoskeletal: Full range of motion without pain or deformities. Neuro: The patient is awake. She is alert and oriented x3 with cranial nerves grossly intact. DISCHARGE PLAN: Ms. Smith will be discharged to home. CONDITION: Good. DIET: Continue low residue and advance as tolerated. MEDICATIONS: Continue prednisone 40 mg p.o. daily. ACTIVITY: As tolerated. EDUCATION: 1. Establish with the [facility] in 4 to 7 days. Office will call with appointment date and time. 2. Follow up with Dr. Villatoro within 2 weeks to discuss prednisone, further management of Crohn disease. 3. Return to the ER or nearest hospital if she experienced any worsening of symptoms, chest discomfort, shortness of breath, dizziness, lightheadedness, loss of consciousness, high fevers, chills, night sweats, or any other worrisome signs or symptoms. This is a summarized report of a complex medical history and hospital stay. For further details, please see the entire medical record. TIME SPENT: Approximately 35 minutes was spent on this discharge, greater than half that time was spent [id number] with the patient and her daughter discussing discharge plans and instructions. KJ RODRIGUEZ [id number]/[facility] #: [id number] MTDD
== END 2019-04-02 13:30 | disposition home or self-care (01) | DRG 389 ==
LOC: ED 09:33 → MED 18:13
PROVIDERS: ADMIT Nurse Practitioner Adult Health; ATTEND Internal Medicine
DX: K56.600 Partial intestinal obstruction, unspecified as to cause (principal); K50.90 Crohn's disease, unspecified, without complications; E87.2 Acidosis; F17.210 Nicotine dependence, cigarettes, uncomplicated; I49.1 Atrial premature depolarization; I70.8 Atherosclerosis of other arteries; Z88.5 Allergy status to narcotic agent; Z88.8 Allergy status to other drugs, medicaments and biological substances; Z83.79 Family history of other diseases of the digestive system
CPT/HCPCS: 36415; 74018; 74177; 80048; 80053; 81003; 81015; 82803; 83605; 83690; 83735; 84484; 85025; 86140; 87086; 90686; 93005; 96372; 99284; J1650; J2270; J2405; J2930; J3475; Q9967

== ENCOUNTER 2021-01-25 00:39 | Observation (INO) ==
[2021-01-25 03:39] LABS: ABS Basophils 0.1 10^3/ul (0-0.2); ABS Lymphocytes 3.1 10^3/ul (1.0-4.8); ABS Monocytes 1.5 10^3/ul (0-0.8); ABS Neutrophils 9.1 10^3/ul (1.5-7.7); Eosinophil % 0.3 %; Hematocrit 38 % (35-47); Hemoglobin 13.3 g/dL (12.0-16.0); Lymphocyte % 22.6 %; Mean Corpuscular HGB Conc 35 g/dL (31-36); Mean Corpuscular Hemoglobin 30 pg (27-31); Mean Corpuscular Volume 85 fL (80-97); Mean Platelet Volume 7.5 fL (7.4-10.4); Platelet Count 289 10^3/uL (150-450); Red Blood Count 4.49 10^6 /uL (3.70-4.87); Red Cell Distribution Width 13 % (10-15); White Blood Count 13.8 10^3/uL (3.5-10.8)
[2021-01-25 04:05] LABS: Albumin 3.9 g/dL (3.2-5.2); Albumin/Globulin Ratio 0.9 (1-3); C Reactive Protein 244.47 mg/L (<8.01); Calcium 9.3 mg/dL (8.6-10.3); EGFR African American 108.8 (>60); EGFR Non-African American 89.9 (>60); Globulin 4.3 g/dL (2-4); Potassium 2.9 mmol/L (3.5-5.0); Total Bilirubin 0.4 mg/dL (0.2-1.0); Total Protein 8.2 g/dL (6.4-8.9)
[2021-01-25] MEDS ORDERED: Ondansetron 4 mg VIAL 2 MG/ML 2 ml VIAL IV ONE (04:06)
[2021-01-25] MEDS: KCL 20 MEQ/100 ML IVPREMIX 20 MEQ/100 ML BAG IV SCH ×2 (04:17→07:45)
[2021-01-25 05:08] LABS: Urine Appearance Cloudy; Urine Bilirubin Negative (Negative); Urine Blood 2+ (Negative); Urine Color Yellow; Urine Glucose Negative (Negative); Urine Ketones 1+ (Negative); Urine Nitrite Negative (Negative); Urine Protein 1+(30 mg/dL) (Negative); Urine Specific Gravity 1.013 (1.002-1.030); Urine Urobilinogen Negative (Negative)
[2021-01-25 05:27] LABS: Urine Bacteria Absent (Absent); Urine Red Blood Cell 1+(3-5/hpf) (Absent); Urine Squamous Epithelial Cell Present (Absent); Urine Transitional Epithelial Present (Absent); Urine White Blood Cell 3+(>20/hpf) (Absent)
[2021-01-25] MEDS ORDERED: ceFAZolin 1 GM ADVAN 1 GM in NS 0.9% 50 ML 50 ML IVPB ONE (06:08)
[2021-01-25] MEDS ORDERED: Al Hydrox/Mg Hydrox/Simet LIQ 30 ML UDC PO PRN (08:25)
[2021-01-25] MEDS ORDERED: Ondansetron 4 mg VIAL 2 MG/ML 2 ml VIAL IV PRN ×2 (08:25→08:38)
[2021-01-25] MEDS ORDERED: NS 0.9% w/ 20 Meq KCL 1000 ml 1,000 ML IV SCH (09:00)
[2021-01-25] MEDS: cefTRIAXone 1 gm/50 mL NS BAG 1 GM/50 ML BAG IVPB SCH (09:12)
[2021-01-25] MEDS: Enoxaparin 40 MG/0.4 ML SYR SUBCUT SCH (13:03)
[2021-01-25] MEDS: Cholecalciferol (VIT D3) 1,000 unit TAB PO SCH (13:03)
[2021-01-26 08:06] LABS: ABS Basophils 0.1 10^3/ul (0-0.2); ABS Eosinophils 0.2 10^3/ul (0-0.6); ABS Lymphocytes 3.9 10^3/ul (1.0-4.8); ABS Monocytes 1.1 10^3/ul (0-0.8); ABS Neutrophils 4.8 10^3/ul (1.5-7.7); Eosinophil % 2.3 %; Hematocrit 35 % (35-47); Hemoglobin 12.2 g/dL (12.0-16.0); Lymphocyte % 38.6 %; Mean Corpuscular HGB Conc 35 g/dL (31-36); Mean Corpuscular Hemoglobin 30 pg (27-31); Mean Corpuscular Volume 86 fL (80-97); Mean Platelet Volume 7.2 fL (7.4-10.4); Platelet Count 295 10^3/uL (150-450); Red Blood Count 4.09 10^6 /uL (3.70-4.87); Red Cell Distribution Width 13 % (10-15); White Blood Count 10.1 10^3/uL (3.5-10.8)
[2021-01-26 08:23] LABS: Calcium 8.4 mg/dL (8.6-10.3); EGFR African American 121.4 (>60); EGFR Non-African American 100.3 (>60); Potassium 3.3 mmol/L (3.5-5.0)
[2021-01-26] MEDS: Cholecalciferol (VIT D3) 1,000 unit TAB PO SCH (09:08)
[2021-01-26] MEDS: Enoxaparin 40 MG/0.4 ML SYR SUBCUT SCH (09:08)
[2021-01-26] MEDS: cefTRIAXone 1 gm/50 mL NS BAG 1 GM/50 ML BAG IVPB SCH (09:09)
[2021-01-26] MEDS ORDERED: Potassium Chlor 20 meq TAB.ER PO ONE (10:18)
[2021-01-27 06:41] LABS: ABS Basophils 0.1 10^3/ul (0-0.2); ABS Eosinophils 0.3 10^3/ul (0-0.6); ABS Lymphocytes 4.5 10^3/ul (1.0-4.8); ABS Monocytes 0.8 10^3/ul (0-0.8); ABS Neutrophils 3.4 10^3/ul (1.5-7.7); Eosinophil % 3.6 %; Hematocrit 36 % (35-47); Hemoglobin 12.5 g/dL (12.0-16.0); Lymphocyte % 49.5 %; Mean Corpuscular HGB Conc 35 g/dL (31-36); Mean Corpuscular Hemoglobin 30 pg (27-31); Mean Corpuscular Volume 86 fL (80-97); Mean Platelet Volume 7.2 fL (7.4-10.4); Nucleated Red Blood Cells % 0.1; Platelet Count 329 10^3/uL (150-450); Red Blood Count 4.19 10^6 /uL (3.70-4.87); Red Cell Distribution Width 13 % (10-15)
[2021-01-27 07:01] LABS: C Reactive Protein 86.89 mg/L (<8.01); Calcium 8.5 mg/dL (8.6-10.3); EGFR African American 103.3 (>60); EGFR Non-African American 85.4 (>60); Potassium 3.4 mmol/L (3.5-5.0)
[2021-01-27] MEDS ORDERED: Potassium Chlor 20 meq TAB.ER PO ONE (07:17)
[2021-01-27] MEDS: Enoxaparin 40 MG/0.4 ML SYR SUBCUT SCH (08:35)
[2021-01-27] MEDS: Cholecalciferol (VIT D3) 1,000 unit TAB PO SCH (08:35)
[2021-01-27] MEDS: cefTRIAXone 1 gm/50 mL NS BAG 1 GM/50 ML BAG IVPB SCH (08:35)
[2021-01-27 10:00] VITALS: BP 120/56
== END 2021-01-27 12:00 | disposition home or self-care (01) ==
LOC: MED 00:39 → ED 00:39 → MED 11:01
PROVIDERS: ADMIT Internal Medicine; ATTEND Internal Medicine

== ENCOUNTER 2024-05-27 13:41 | Observation (INO) ==
[2024-05-27] MEDS: Lactated Ringers 1000 ml BAG IV.FLUID IV ONE ×2 (16:00→19:46)
[2024-05-27 16:14] LABS: ABS Basophils 0.1 10^3/uL (0.0-0.1); ABS Eosinophils 0.1 10^3/uL (0.0-0.5); ABS Lymphocytes 2.9 10^3/uL (1.0-4.8); ABS Monocytes 0.7 10^3/uL (0.0-0.9); ABS Neutrophils 8.9 10^3/uL (1.5-7.6); ABS Nucleated RBC 0.01 10^3/ul; Eosinophil % 0.6 %; Hematocrit 43.7 % (35-45); Hemoglobin 14.8 g/dL (11.5-14.3); Mean Corpuscular Hemoglobin 29.6 pg (27-33); Mean Corpuscular Hgb Conc 33.8 g/dL (31-36); Mean Corpuscular Volume 87.6 fL (80-97); Mean Platelet Volume 7.4 fL (7.5-11.2); Nucleated Red Blood Cells % 0.1 %/100WBC (0.0-0.8); Platelet Count 307 10^3/uL (150-450); Red Blood Count 4.98 10^6/uL (3.63-4.92); Red Cell Distribution Width 15.1 % (12-17); White Blood Count 12.7 10^3/uL (3.8-11.8)
[2024-05-27] MEDS: Ondansetron 4 mg VIAL 2 MG/ML 2 ml VIAL IV ONE (16:36)
[2024-05-27 17:02] LABS: ALT 19 U/L (7-52); Albumin 4.3 g/dL (3.2-5.2); Albumin/Globulin Ratio 1.4 (1-3); Alkaline Phosphatase 85 U/L (35-149); Anion Gap 14 mmol/L (2-16); Blood Urea Nitrogen 24 mg/dL (6-24); C Reactive Protein 28.59 mg/L (<8.01); CO2 Carbon Dioxide 24 mmol/L (22-32); Calcium 9.7 mg/dL (8.6-10.3); Chloride 100 mmol/L (101-111); Creatinine, Serum 0.83 mg/dL (0.51-0.95); Globulin 3.1 g/dL (2-4); Glucose 122 mg/dL (70-100); Sodium 138 mmol/L (135-145); Total Bilirubin 0.8 mg/dL (0.2-1.0); Total Protein 7.4 g/dL (6.4-8.9); eGFR CKD-EPI 76.7 (>60)
[2024-05-27 17:20] LABS: Urine Appearance Extra Turbid; Urine Bilirubin Negative (Negative); Urine Blood 3+ (Negative); Urine Color Yellow; Urine Glucose Negative (Negative); Urine Ketones Trace (Negative); Urine Nitrite Negative (Negative); Urine Protein 3+ (>=300 mg/dL) (Negative); Urine Specific Gravity 1.037 (1.002-1.030); Urine Urobilinogen 1+ (Negative)
[2024-05-27 17:27] LABS: Urine Bacteria Absent /HPF (Absent); Urine Red Blood Cell 3+(>10/hpf) /HPF (0-Trace); Urine Squamous Epithelial Cell Present /HPF (Absent); Urine White Blood Cell 3+(>20/hpf) /HPF (0-Trace)
[2024-05-27] MEDS: Iohexol 350 (CONTRAST) 500 ML MDV IV ONE (18:25)
[2024-05-27] MEDS: Pantoprazole VIAL 40 MG VIAL IV ONE (18:27)
[2024-05-27] MEDS: Al Hydrox/Mg Hydrox/Simet LIQ 30 ML UDC PO ONE (18:27)
[2024-05-27] MEDS: cefTRIAXone 1 gm/50 mL D5W 1 GM/50 ML BAG IV ONE (19:23)
[2024-05-27 20:46] LABS: Potassium Redraw 3.9 mmol/L (3.5-5.0)
[2024-05-28] MEDS ORDERED: Ondansetron 4 mg VIAL 2 MG/ML 2 ml VIAL IV PRN (00:41)
[2024-05-28] MEDS: Acetaminophen IV 1 GM/100ML 1,000 MG/100 ML BAG IV ONE (01:01)
[2024-05-28] MEDS: Lactated Ringers 1000 ml BAG 1,000 ML IV SCH (01:10)
[2024-05-28 05:37] LABS: ABS Basophils 0.1 10^3/uL (0.0-0.1); ABS Eosinophils 0.3 10^3/uL (0.0-0.5); ABS Lymphocytes 4.2 10^3/uL (1.0-4.8); ABS Monocytes 0.8 10^3/uL (0.0-0.9); ABS Neutrophils 4.4 10^3/uL (1.5-7.6); ABS Nucleated RBC 0.01 10^3/ul; Eosinophil % 3.1 %; Hematocrit 36.6 % (35-45); Hemoglobin 12.2 g/dL (11.5-14.3); Lymphocyte % 42.8 %; Mean Corpuscular Hemoglobin 29.3 pg (27-33); Mean Corpuscular Hgb Conc 33.4 g/dL (31-36); Mean Corpuscular Volume 87.7 fL (80-97); Mean Platelet Volume 6.8 fL (7.5-11.2); Nucleated Red Blood Cells % 0.1 %/100WBC (0.0-0.8); Platelet Count 240 10^3/uL (150-450); Red Blood Count 4.18 10^6/uL (3.63-4.92); Red Cell Distribution Width 14.8 % (12-17); White Blood Count 9.8 10^3/uL (3.8-11.8)
[2024-05-28 06:38] LABS: Anion Gap 9 mmol/L (2-16); Blood Urea Nitrogen 14 mg/dL (6-24); CO2 Carbon Dioxide 25 mmol/L (22-32); Calcium 8.1 mg/dL (8.6-10.3); Chloride 102 mmol/L (101-111); Creatinine, Serum 0.68 mg/dL (0.51-0.95); Glucose 96 mg/dL (70-100); Magnesium 1.3 mg/dL (1.9-2.7); Sodium 136 mmol/L (135-145); eGFR CKD-EPI 94.8 (>60)
[2024-05-28] MEDS: Magnesium Sulf 4 GM/100 ML IV 4,000 MG/100 ML BAG IVPB ONE (07:48)
[2024-05-28] MEDS: Acetaminophen IV 1 GM/100ML 1,000 MG/100 ML BAG IV PRN (14:03)
[2024-05-28] MEDS: Pantoprazole VIAL 40 MG VIAL IV SCH (17:36)
[2024-05-28] MEDS: cefTRIAXone 1 gm/50 mL D5W 1 GM/50 ML BAG IV SCH (18:01)
[2024-05-28] MEDS: Iodixanol 320 (CONTRAST) 100 ML SDV IV ONE (18:24)
[2024-05-28] MEDS: Enoxaparin 40 MG/0.4 ML SYR SUBCUT SCH (22:16)
[2024-05-29 06:57] LABS: Hematocrit 35.9 % (35-45); Hemoglobin 12.2 g/dL (11.5-14.3); Mean Corpuscular Hemoglobin 29.6 pg (27-33); Mean Corpuscular Hgb Conc 33.8 g/dL (31-36); Mean Corpuscular Volume 87.5 fL (80-97); Mean Platelet Volume 7.1 fL (7.5-11.2); Platelet Count 249 10^3/uL (150-450); Red Cell Distribution Width 14.8 % (12-17); White Blood Count 7.6 10^3/uL (3.8-11.8)
[2024-05-29 07:28] LABS: Calcium 7.9 mg/dL (8.6-10.3); Creatinine, Serum 0.55 mg/dL (0.51-0.95); Magnesium 1.5 mg/dL (1.9-2.7); Potassium 3.3 mmol/L (3.5-5.0); eGFR CKD-EPI 99.8 (>60)
[2024-05-29] MEDS: Magnesium Sulf 4 GM/100 ML IV 4,000 MG/100 ML BAG IVPB ONE (08:53)
[2024-05-30 05:25] LABS: ABS Eosinophils 0.2 10^3/uL (0.0-0.5); ABS Lymphocytes 4.1 10^3/uL (1.0-4.8); ABS Monocytes 0.6 10^3/uL (0.0-0.9); ABS Neutrophils 3.1 10^3/uL (1.5-7.6); Eosinophil % 2.4 %; Hematocrit 36.7 % (35-45); Hemoglobin 12.4 g/dL (11.5-14.3); Lymphocyte % 50.9 %; Mean Corpuscular Hemoglobin 29.2 pg (27-33); Mean Corpuscular Hgb Conc 33.7 g/dL (31-36); Mean Corpuscular Volume 86.6 fL (80-97); Platelet Count 269 10^3/uL (150-450); Red Blood Count 4.24 10^6/uL (3.63-4.92); Red Cell Distribution Width 14.3 % (12-17); White Blood Count 8.1 10^3/uL (3.8-11.8)
[2024-05-30 05:42] LABS: Calcium 8.1 mg/dL (8.6-10.3); Creatinine, Serum 0.6 mg/dL (0.51-0.95); Magnesium 1.6 mg/dL (1.9-2.7); Phosphorus 3.2 mg/dL (2.5-5.0); Potassium 2.9 mmol/L (3.5-5.0); eGFR CKD-EPI 97.7 (>60)
[2024-05-30] MEDS: Magnesium Sulf 4 GM/100 ML IV 4,000 MG/100 ML BAG IVPB ONE (09:14)
[2024-05-30 14:18] VITALS: BP 175/76
== END 2024-05-30 15:00 | disposition home or self-care (01) ==
LOC: ED 13:41 → EDHOLD 13:41 → SUATTDRO 21:09 → SSU 22:52 → MED 05-29 02:04
PROVIDERS: ADMIT Internal Medicine; ATTEND Student in an Organized Health Care Education/Training Program